=== PATIENT | male | born 1960 | race African-American/Black ===

== ENCOUNTER 2018-11-30 15:09 | Outpatient (CLI) | payer OTHER ==
--- NOTE | 2018-11-30 16:32 | RAD ---
RIGHT HIP TWO VIEWS: HISTORY: Right hip pain. FINDINGS: Mild joint space narrowing and osteophytosis. Femoral head contour is maintained. No acute fracture or dislocation. Cortical deformity at the lateral aspect of the right iliac wing is consistent with prior orthopedic harvest. IMPRESSION: Mild osteoarthritic changes, right hip. POS: BANDAR
--- NOTE | 2018-11-30 16:35 | RAD ---
RIGHT FOOT TWO VIEWS: HISTORY: Right foot pain. COMPARISON: 09/28/2012 FINDINGS: Internal fixation of the hindfoot and ankle with three long lag screws is stable compared to the prev ious exam. No gross Lisfranc malalignment is apparent on the single frontal view. Cortical remodeli ng of the 3rd and 4th metatarsals has the appearance of old healed injuries. Moderate degenerative c hanges throughout the midfoot. Subchondral sclerosis is most pronounced at the 1st metatarsophalange al joint, where there is minimal lateral subluxation. No acute fracture or dislocation. IMPRESSION: 1. Operative fixation of the hindfoot and ankle. No evidence of hardware complication. 2. Mild osteoarthritic changes of the midfoot and first metatarsophalangeal joint. 3. Old healed injuries of the metatarsals. 4. No acute osseous abnormalities are demonstrated. POS: BANDAR
== END 2018-11-30 15:10 | disposition home or self-care (01) ==
LOC: BICRAD 15:09
PROVIDERS: ATTEND Internal Medicine
DX: Z02.71 Encounter for disability determination (principal); M16.11 Unilateral primary osteoarthritis, right hip; M19.071 Primary osteoarthritis, right ankle and foot; Z98.890 Other specified postprocedural states